=== PATIENT | male | born 1985 | race African-American/Black ===

== ENCOUNTER 2019-11-21 11:24 | Inpatient (IN) | payer OTHER ==
[~2019-11-21] VITALS: Ht 180.3 cm; Wt 117.0 kg
[2019-11-21 11:25] VITALS: BP 146/96
[2019-11-21 13:48] LABS: HEMATOCRIT 49.4 % (42.0-52.0); HEMOGLOBIN 16.3 gm/dL (14.0-18.0); MCH 28.1 pg (26.0-34.0); MCV 85.3 fL (80.0-100.0); PLATELET COUNT 241 thou/uL (150-400); RBC 5.79 mil/uL (4.50-6.00); RDW 12.6 % (10.5-14.5); WBC 5.9 thou/uL (4.0-11.0)
[2019-11-21 14:00] LABS: ANION GAP 12 mmol/L (7-16); BUN 21 mg/dL (7-18); CALCIUM 9.7 mg/dL (8.5-10.1); CHLORIDE 91 mmol/L (98-107); CO2 24 mmol/L (21-32); CREATININE 1.4 mg/dL (0.7-1.3); SODIUM 127 mmol/L (136-145); TROPONIN-I <0.06 ng/mL (<0.06)
[2019-11-21 14:03] LABS: GLUCOSE 537 mg/dL (74-106)
[2019-11-21 15:08] LABS: ABSOLUTE NEUTROPHILS 3.5 thou/uL (1.4-8.2); PLATELET ESTIMATE NORMAL
[2019-11-21 15:14] LABS: URINE BILIRUBIN NEGATIVE (Negative); URINE BLOOD NEGATIVE (Negative); URINE CLARITY CLEAR; URINE COLOR YELLOW; URINE GLUCOSE-RANDOM* 3+ (Negative); URINE KETONES 1+ (Negative); URINE LEUKOCYTES-REFLEX NEGATIVE (Negative); URINE NITRITE-REFLEX NEGATIVE (Negative); URINE PROTEIN (DIPSTICK) NEGATIVE (Negative); URINE UROBILINOGEN 0.2 E.U./dl (0.2-1.0)
[2019-11-21 16:32] VITALS: BP 132/90
[2019-11-21 17:20] LABS: CHOLESTEROL 219 mg/dL (<200); HDL CHOLESTEROL 20 mg/dL (>40); TRIGLYCERIDE 642 mg/dL (<150); VLDL 128 mg/dL (<40)
[2019-11-21 17:25] VITALS: BP 134/87
[2019-11-21 17:34] VITALS: BP 143/105
--- NOTE | 2019-11-21 19:30 | NUR ---
PATIENT ADMITTED TO ROOM AT THIS TIME. HE IS ALERT ORIENTED X4. DENIES COMPLAIN OF PAIN. EDUCATED ON NEW DIET. HE DID VOICE UNDERSTQNDING. AMBULATES ABOUT ROOM WITH NO DIFICULTY. WILL CONT WITH PLAN OF CARE.
[2019-11-22 00:10] VITALS: BP 114/76
[2019-11-22 00:18] LABS: CALCIUM 8.3 mg/dL (8.5-10.1); CREATININE 1.1 mg/dL (0.7-1.3)
[2019-11-22 00:19] LABS: MAGNESIUM 1.9 mg/dL (1.8-2.4); POTASSIUM 3.6 mmol/L (3.5-5.1)
--- NOTE | 2019-11-22 02:31 | NUR ---
Patient making some progress towards outcome goals. IVFluids and insulin drip infusing. Titrating to keep BS between 150-200. Patient very open to lifestyle and diet change to correct new diagnosis. Vital signs and rhythm stable. Care plan initiated.
[2019-11-22 04:05] VITALS: BP 111/59
[2019-11-22 07:11] LABS: ALBUMIN 2.9 g/dL (3.4-5.0); CALCIUM 8.1 mg/dL (8.5-10.1); MAGNESIUM 1.9 mg/dL (1.8-2.4); POTASSIUM 3.4 mmol/L (3.5-5.1); TOTAL BILIRUBIN 0.5 mg/dL (<0.1-1.0); TOTAL PROTEIN 7.3 g/dL (6.4-8.2)
[2019-11-22 07:49] VITALS: BP 118/78
[2019-11-22 11:35] VITALS: BP 120/84
--- NOTE | 2019-11-22 14:02 | NUR ---
Nutrition: Pt admit with new dx of T2DM. Glucose ranging from 149 to >500 mg/dL. Symptoms prior to admit included polydipsia, polyuria, polyphagia, and blurred vision. No previous pertinent medical Hx. Began IVF and insulin drip. Triglycerides: 642, total cholesterol: 219, HDL: 20. Nutritional assessment revealed typical diet high in refined carbohydrates and saturated fats. No physical activity but is on his feet all day at work. He has tried to cut back on "fatty foods and bread" in the past but has been unsuccessful. Received diabetes education per nsg but is feeling overwhelmed. Stated that time is not a barrier to healthy eating and losing weight is a priority. His girlfriend also has diabetes and sounds like she will be a good source of support for him. Followed up in the afternoon to provide more detailed diet education. See RD Education note. Pt seems motivated and confident that he will succeed in making diet and lifestyle changes to improve weight and blood sugar. Good appetite and intake with 95-100% of meals and snacks. Current weight 258#, BMI 36. Consider low nutritional risk.
--- NOTE | 2019-11-22 14:08 | NUR ---
INITIAL ASSESSMENT: Received consult for discharge planning. Pt was admitted from home due to new onset DM and HTN. Pt's BG was over 500 at time of admission. Pt does not have health insurance. Referral sent to [employer] for financial assistance. Pt does work and will not qualify for Medicaid, as he is not 12+ months disabled. Endocrinology consulted. Pt on insulin gtt and will be discontinued today. Discharge home is anticipated for tomorrow. KORI met with pt at bedside. Introduced role of KORI. Pt is alert/orientated x 4. Pt reports he lives at home. Prior to admission, pt was independent with ADLs. No use of DME. Pt states he does not have a PCP. Pt has scheduled himself an appointment at [facility] location on 12/01 at 0900 to establish primary care. KORI provided pt with Health Resource Guide and prescription discount card. KORI requested [facility] to meet with pt to assist with insulin prescription assistance program. Case Mgmt to vouch for 30-day supply of meds if needed. KORI is following to assist as needed with discharge planning.
[2019-11-22 16:10] VITALS: BP 120/82
--- NOTE | 2019-11-22 16:27 | NUR ---
PATIENT EDUCATED BY NURSE AND DIETITIAN ABOUT NEW DIETS. HE DID VOICE UNDERSTANDING. HE IS ALERT ORIENTED X4. AMBULATES HALLWAY WITH NO DIFFICULTY. INSULIN DRIP DC. ON LANTUS. WILL KEEP MONITORING BLOOD SUGARS. WILL CONT WITH PLAN OF CARE.
[2019-11-22 19:04] VITALS: BP 115/72
[2019-11-23 00:06] LABS: GLYCOHEMOGLOBIN (HGB A1C) 10.8 % (4.8-5.6)
--- NOTE | 2019-11-23 00:21 | NUR ---
allowed him to draw up his insulin tonight at bedtime, and self inject. He stated that he feels more confident about the process since we have been letting him demonstrate. he tolerated instruction without frustration
[2019-11-23 04:06] VITALS: BP 118/82
--- NOTE | 2019-11-23 04:50 | NUR ---
resting quiertly tonight. denies pain. no discharge concerns, except if he will be allowed to go back to work. offered some education on how to dispose of his dirty needles at home, and while working. careplan reviwed. he is epecting to go home today and follow up with endocrine soon.
[2019-11-23 08:17] VITALS: BP 117/81
[2019-11-23 11:40] VITALS: BP 115/74
--- NOTE | 2019-11-23 11:56 | NUR ---
SW reviewed chart and spoke with nursing and attending physician. Pt is progressing towards goals for discharge. Pt may discharge home later today pending endocrinology recommendations for insulin. Meds to be vouched in [facility] outpatient pharmacy. UR Tech not available today. KORI is following to assist as needed with discharge planning.
[2019-11-23] MEDS ORDERED: FENOFIBRATE54 MG PO (11:59)
[2019-11-23] MEDS ORDERED: LISINOPRIL5 MG PO (11:59)
[2019-11-23] MEDS ORDERED: ASPIR 8181 MG PO (11:59)
[2019-11-23] MEDS ORDERED: ATORVASTATIN CA10 MG PO (11:59)
--- NOTE | 2019-11-23 12:05 | HC ---
[facility] [place] [address] [place] [address] CONSULTATION Name: CHEVY ACOSTA Room #: 349-I ADM IN M.R.#: [id number] Admission: 11/21/19 Attend Phys: Sharon Polanco MD Discharge: Date of : 81 Report #: [id number] THIS REPORT FOR: cc: NO FAMILY PHYSICIAN or PCP FAM - No family physician/PCP Oxana Farmer MD ~ CC: Sharon Polanco FAM physician/PCP NO PCP DATE OF SERVICE: 11/22/2019 ENDOCRINE CONSULTATION NOTE CONSULTING PHYSICIAN: Dr. Sharon Polanco. REASON FOR CONSULTATION: Severe hyperglycemia, type 2 diabetes mellitus. HISTORY OF PRESENT ILLNESS: This is a 34-year-old male patient whose medical background is rather unremarkable, who presented to the ER yesterday with complaints of progressive weakness, blurring of vision, polyuria, polydipsia, which all started within the week preceding presentation. Again, the patient is not aware of any specific health issues and has not been on any chronic medications prior to this presentation. On arrival, the patient was found to be in severe hyperglycemia with his blood glucose exceeding 500 mg/dL. Subsequently, he was admitted for further care and monitoring with intravenous insulin and intravenous fluids. REVIEW OF SYSTEMS: CONSTITUTIONAL: Fatigue, tiredness, but not fever, chills or weight loss. HEENT: Negative for sore throat, sinus pain, ear drainage. PULMONARY: Negative for shortness of breath, cough or hemoptysis. CARDIAC: Negative for chest pain, palpitations, syncope or presyncope. GASTROINTESTINAL: Noted for intermittent issues with abdominal discomfort, but not nausea, vomiting or changes in bowel movement frequency. NEUROLOGY: Negative for loss of consciousness, headaches or seizure activity. PSYCHIATRIC: Negative for delusions, hallucinations or other abnormalities. SKIN: Negative for rash, ulceration or other abnormalities. Otherwise, the patient's review of systems noncontributory other than those mentioned in HPI. PAST MEDICAL HISTORY: Obesity. OUTPATIENT MEDICATIONS: None. [address] [address] CONSULTATION Name: CHEVY ACOSTA Room #: 349-I [facility] ..#: [id number] Admission: 11/21/19 Attend Phys: Sharon Polanco MD Discharge: Date of : 81 Report #: [id number] DRUG ALLERGIES: No known drug allergies. FAMILY HISTORY: Significant for diabetes mellitus and hypertension. SOCIAL HISTORY: The patient is not , lives with his girlfriend, smokes sporadically, drinks on weekends, but does not use illicit drugs. PHYSICAL EXAMINATION: GENERAL: Pleasant -Faroese male patient who is not in apparent pain or distress. VITAL SIGNS: Blood pressure is 118/78 mmHg, heart rate is 89 beats per minute, respirations 20 per minute, temperature 37.1 degrees. PSYCH: The patient is lying comfortably in bed, does not appear to be in pain or distress. HEENT: Anicteric sclerae. Intact extraocular motions. NECK: Supple, without JVD, carotid bruits or lymphadenopathy. I do not appreciate thyromegaly. CHEST: Noted for moderate air entry bilaterally with scattered rales. No wheeze or crackles. HEART: Regular rate and rhythm without murmurs or gallops. ABDOMEN: Soft and lax without tenderness or organomegaly. No guarding. Active bowel sounds. EXTREMITIES: Lower extremity exam, negative for ankle edema, skin breaks or ulcerations. NEUROLOGIC: Awake, alert and oriented to time, place and person. The remainder of his examination is nonfocal. PSYCHIATRY: Pleasant, interactive. Normal mood and affect. LABORATORY DATA: Blood glucose on arrival was more than 500 mg/dL and has progressively fallen under 180 mg/dL on IV insulin overnight. Otherwise, sodium 136; potassium 3.4; chloride 102; CO2 of 26; anion gap 8, on arrival, this was 12. The BUN 12, creatinine 1.0, AST 21, total bilirubin 0.5, calcium 8.1, phosphorus 4.2, magnesium 1.9, alkaline phosphatase 69, total protein 7.3, albumin 2.9. EGFR 102. Lactic acid 1.2. Total cholesterol 219, triglycerides 642, HDL 20, white blood count 5.9, hemoglobin 16.3, hematocrit 49.4, platelets 241. TSH 1.71. ASSESSMENT AND PLAN: 1. Type 2 diabetes mellitus. This is a new diagnosis for the patient and undoubtedly, he has been hyperglycemic for some time prior to this presentation. However, he presented under conditions of severe hyperglycemia as noted above. The patient was successfully managed with intravenous fluids and intravenous insulin and has maintained adequate glycemic control over the past several hours. Fortunately, the patient was not ketotic. The patient has not developed DKA prior to presentation. Judging by the patient's IV insulin needs which are averaging at about 5 units per hour, the patient will be transitioned to a [address] [address] CONSULTATION Name: CHEVY ACOSTA Room #: 349-I [facility] [place]#: [id number] Admission: 11/21/19 Attend Phys: Sharon Polanco MD Discharge: Date of : 81 Report #: [id number] combination of Lantus insulin 40 units q.a.m. in addition to a moderate scale, moderate intensity Humalog sliding scale with blood glucose monitoring a.c. and at bedtime following the discontinuation of his IV insulin therapy, 2-3 hours after his first Lantus injection. Moreover, I would like to start the patient on a combination of metformin ER 750 mg b.i.d. in addition to linagliptin 5 mg daily. The patient was counseled extensively about the new diagnosis of diabetes mellitus, its pathogenesis, its implications, and the importance of achieving and maintaining adequate glycemic control so as to avoid short term and skilled nursing diabetic complications. I stressed the importance of effective diet and exercise measures in achieving these goals, which the patient seemed motivated to do. I explained that introductory insulin therapy might be needed for a few weeks to expedite the taoist of glycemic control, which he understood and seems to be agreeable with. 2. Dyslipidemia. The patient has severe hypertriglyceridemia as noted above. This is a reflection of likely insulin resistance and relative insulin deficiency. I am hopeful that the normalization of his glycemic values enough itself would be a valuable contribution to controlling his triglycerides, but I would like to also start fenofibrate 54 mg daily in order to achieve a rapid and significant reduction in his triglyceride levels to cartel the risk of pancreatitis. Periodic outpatient monitoring of this issue will be needed as well to ensure continued stability. I certainly appreciate this consultation by Dr. Polanco. <ELECTRONICALLY SIGNED> By: Oxana Farmer MD 11/23/19 1205 [id number] Oxana Farmer MD /nt
[2019-11-23 12:19] LABS: CALCIUM 9.1 mg/dL (8.5-10.1); CREATININE 0.9 mg/dL (0.7-1.3)
[2019-11-23] MEDS ORDERED: LANTUS SUBQ (14:50)
[2019-11-23] MEDS ORDERED: GLUCOPHAGE XR750 MG PO (14:50)
[2019-11-23] MEDS ORDERED: TRADJENTA5 MG PO (14:50)
[2019-11-23 15:52] VITALS: BP 113/80
[2019-11-23 16:41] VITALS: BP 113/80
--- NOTE | 2019-11-23 17:38 | NUR ---
PATIENT EDUCATED ON DIABETES, AND NEW MEDS BEFORE BEING DISCHARGED HOME. HE IS AALERT ORIENTED X4. DOES NOT SEEM TO BE IN PAIN. BLOOD SUGAR WAS LESS THAN 150 AT TIME OF DISCHARGE. HE PICKED UP HIS MEDS FROM OUTPATIENT PHARMACY.
--- NOTE | 2019-11-24 11:22 | EKG ---
[facility] [place] [address] [place] [address] ELECTROCARDIOGRAM REPORT Name: CHEVY ACOSTA Room #: 349-I DIS IN M.R.#: [id number] Admission: 11/21/19 Attend Phys: Sharon Polanco MD Discharge: 11/23/19 Date of : 81 Report #: [id number] THIS REPORT FOR: cc: NO FAMILY PHYSICIAN or PCP FAM - No family physician/PCP Florencio Torres MD ~ THIS REPORT FOR: //name// [facility] ED Test Date: 2019-11-21 Test Time: 13:32:58 Pat Name: CHEVY ACOSTA Department: Room: 170 Gender: M Maintenance Mechanic: DIETER : 1985 Requested By: Vanessa Cole Order Number: [id number] MD: Florencio Torres Measurements Intervals [place] Rate: 108 P: 17 [place]: 135 QRS: 13 QRSD: 81 T: 65 QT: 316 QTc: 424 Interpretive Statements Sinus tachycardia Probable left atrial enlargement Left ventricular hypertrophy ST elev, probable normal early repol pattern No previous ECG available for comparison Electronically Signed On 11-21-2019 16:54:26 HYDRAULIC OPERATOR by Florencio Torres [email or web address] <ELECTRONICALLY SIGNED> By: Florencio Torres MD 11/21/19 1654 [id number] 133 Florencio Torres MD /EPI
== END 2019-11-23 17:38 | disposition home or self-care (01) | DRG 638 ==
LOC: ER 11:24 → EROBS 16:20 → 3W 16:20
PROVIDERS: Internal Medicine; Nurse Practitioner; ADMIT Hospitalist
DX: E11.10 Type 2 diabetes mellitus with ketoacidosis without coma (principal); E87.1 Hypo-osmolality and hyponatremia; N17.9 Acute kidney failure, unspecified; I10 Essential (primary) hypertension; E66.9 Obesity, unspecified; E87.8 Other disorders of electrolyte and fluid balance, not elsewhere classified; F17.210 Nicotine dependence, cigarettes, uncomplicated; E78.5 Hyperlipidemia, unspecified; E78.1 Pure hyperglyceridemia; E87.6 Hypokalemia; Z83.3 Family history of diabetes mellitus; Z68.36 Body mass index [BMI] 36.0-36.9, adult; Z82.49 Family history of ischemic heart disease and other diseases of the circulatory system
CPT/HCPCS: 10879

== ENCOUNTER 2020-06-11 19:23 | Emergency (ER) | payer OTHER ==
[~2020-06-11] VITALS: Ht 180.3 cm; Wt 105.2 kg
[~2020-06-11 19:23] MED LIST: ASPIR 8181 MG PO; ATORVASTATIN CA10 MG PO; FENOFIBRATE54 MG PO; GLUCOPHAGE XR750 MG PO; LANTUS SUBQ; LISINOPRIL5 MG PO; TRADJENTA5 MG PO
[2020-06-11 21:08] LABS: HEMATOCRIT 38.7 % (42.0-52.0); HEMOGLOBIN 12.8 gm/dL (14.0-18.0); MCH 27.5 pg (26.0-34.0); MCV 83.2 fL (80.0-100.0); PLATELET COUNT 239 thou/uL (150-400); RBC 4.65 mil/uL (4.50-6.00); RDW 13.8 % (10.5-14.5); WBC 9.1 thou/uL (4.0-11.0)
[2020-06-11 21:16] LABS: CALCIUM 9.1 mg/dL (8.5-10.1); CREATININE 1.2 mg/dL (0.7-1.3)
[2020-06-11 21:21] LABS: ALBUMIN 3.1 g/dL (3.4-5.0); TOTAL BILIRUBIN 1.7 mg/dL (0.2-1.0); TOTAL PROTEIN 8.4 g/dL (6.4-8.2)
[2020-06-11 21:47] LABS: ABSOLUTE NEUTROPHILS 5.5 thou/uL (1.4-8.2); ANISOCYTOSIS 1+
[2020-06-11 21:51] LABS: URINE BILIRUBIN NEGATIVE (Negative); URINE BLOOD NEGATIVE (Negative); URINE CLARITY CLEAR; URINE COLOR YELLOW; URINE GLUCOSE-RANDOM* 3+ (Negative); URINE KETONES NEGATIVE (Negative); URINE LEUKOCYTES-REFLEX NEGATIVE (Negative); URINE NITRITE-REFLEX NEGATIVE (Negative); URINE PROTEIN (DIPSTICK) NEGATIVE (Negative); URINE SPECIFIC GRAVITY <= 1.005 (1.005-1.035); URINE UROBILINOGEN >= 8.0 E.U./dl (0.2-1.0)
[2020-06-11] MEDS ORDERED: NORCO 5-325 TA1 EAC2 PO (21:58)
[2020-06-11] MEDS ORDERED: VIBRAMYCIN 100100 M2 PO (21:58)
[2020-06-11 22:30] VITALS: BP 125/72
== END 2020-06-11 22:31 | disposition home or self-care (01) ==
LOC: ER 19:23
PROVIDERS: Physician Assistant
DX: L02.811 Cutaneous abscess of head [any part, except face] (principal); E11.9 Type 2 diabetes mellitus without complications; F17.210 Nicotine dependence, cigarettes, uncomplicated; Z79.4 Long term (current) use of insulin; Z79.899 Other long term (current) drug therapy